=== PATIENT | female | born 1970 | race Caucasian/White ===

== ENCOUNTER → 2024-01-25 08:37 | Outpatient (REF) | payer OTHER, SELFPAY | LOC: WDC 08:37 | PROVIDERS: ATTENDING PHYSICIAN Obstetrics & Gynecology; FAMILY PHYSICIAN Internal Medicine | DX: Z12.31 Encounter for screening mammogram for malignant neoplasm of breast (principal) | CPT/HCPCS: 77063; 77067 ==

== ENCOUNTER → 2024-04-02 11:33 | Outpatient (REF) | payer OTHER, SELFPAY | LOC: HWRAD 11:33 | PROVIDERS: ATTENDING PHYSICIAN Nurse Practitioner | DX: M25.552 Pain in left hip (principal) | CPT/HCPCS: 73502 ==

== ENCOUNTER 2024-11-09 06:28 | Day surgery (SDC) | payer OTHER, SELFPAY ==
[2024-10-29 11:56] LABS: Hematocrit 38.3 % (37.0-47.0); Hemoglobin 11.4 g/dL (12.0-16.0); Mean Corp Hgb Conc. 29.8 g/dL (33.0-37.0); Mean Corpuscular Hgb 18.9 pg (27.0-31.0); Mean Corpuscular Volume 63.6 fL (81.0-99.0); Platelet Count 196 10^3/uL (130-400); Red Blood Cell Count 6.02 10^6/uL (4.20-5.40); Red Cell Dist. Width 17.8 % (11.5-14.5); White Blood Cell Count 4.1 10^3/uL (4.8-10.8)
[2024-10-29 12:06] LABS: Blood Urea Nitrogen 18 mg/dl (7-17); Calcium 9.3 mg/dl (8.4-10.2); Carbon Dioxide 25 mmol/L (22-30); Chloride 103 mmol/L (98-107); Glucose 98 mg/dl (70-99); Potassium 4.8 mmol/L (3.5-5.1); Sodium 138 mmol/L (135-145); eGFR > 60.00
[2024-10-29 13:03] VITALS: BMI 27.8
[2024-11-09 12:34] VITALS: BP 111/70
[2024-11-09 12:38] VITALS: BMI 27.8
[2024-11-09 16:26] VITALS: BP 101/54; BP 111/70
[2024-11-09 16:30] VITALS: BP 110/68
[2024-11-09] MEDS: DILAUDID 0.5 MG IV (16:40)
[2024-11-09 16:45] VITALS: BP 105/58
[2024-11-09 17:00] VITALS: BP 116/72
[2024-11-09 18:00] VITALS: BP 119/71
== END 2024-11-09 18:15 | disposition home or self-care (01) ==
LOC: SDS 06:28
PROVIDERS: ATTENDING PHYSICIAN Podiatrist Foot & Ankle Surgery; FAMILY PHYSICIAN Internal Medicine
DX: M20.11 Hallux valgus (acquired), right foot (principal); M25.39 Other instability, other specified joint; M21.611 Bunion of right foot
CPT/HCPCS: 28297; C1713; 36415; 73630; 76000; 80048; 85027

== ENCOUNTER → 2025-01-03 07:23 | Outpatient (REF) | payer OTHER, SELFPAY | LOC: HWRAD 07:23 | PROVIDERS: ATTENDING PHYSICIAN Physician Assistant Medical; FAMILY PHYSICIAN Internal Medicine | DX: R74.01 Elevation of levels of liver transaminase levels (principal) | CPT/HCPCS: 76700 ==

== ENCOUNTER → 2025-01-28 08:53 | Outpatient (REF) | payer OTHER, SELFPAY | LOC: WDC 08:53 | PROVIDERS: ATTENDING PHYSICIAN Obstetrics & Gynecology; FAMILY PHYSICIAN Internal Medicine | DX: Z12.31 Encounter for screening mammogram for malignant neoplasm of breast (principal) | CPT/HCPCS: 77063; 77067 ==

== ENCOUNTER → 2025-10-02 09:25 | Outpatient (REF) | payer OTHER, SELFPAY | LOC: HWRAD 09:25 | PROVIDERS: ATTENDING PHYSICIAN Hospitalist | DX: R22.9 Localized swelling, mass and lump, unspecified (principal) | CPT/HCPCS: 76882 ==

== ENCOUNTER → 2025-10-22 20:32 | Outpatient (REF) | payer OTHER, SELFPAY | LOC: MRI 20:32 | PROVIDERS: ATTENDING PHYSICIAN Hospitalist | DX: M62.89 Other specified disorders of muscle (principal) | CPT/HCPCS: 73220; A9575 ==